=== PATIENT | male | born 1975 ===

== ENCOUNTER 2025-02-26 06:37 | Day surgery (SDC) | payer MEDICAID, SELFPAY ==
--- NOTE | 2025-02-25 14:56 | W.PM.DSUDISC ---
Date of service: 02/26/25 Discharge Plan Disposition Patient Disposition: Home Condition: Good Discharge Details Reason For Visit: Screening colonoscopy Attending Provider: Darwin Lin Primary Care Provider: Anyi Yu Home Meds and New Rx's Prescriptions: Continued buspirone 5 mg tablet 5 mg PO BID allopurinol 100 mg tablet 200 mg PO DAILY tamsulosin 0.4 mg capsule 0.4 mg PO DAILY pantoprazole 40 mg tablet,delayed release (DR/EC) 40 mg PO DAILY albuterol sulfate [Ventolin HFA] 90 mcg/actuation HFA aerosol inhaler 2 puff inhalation Q6H PRN fluticasone propionate 250 mcg/actuation blister with device 2 inh inhalation BID lisdexamfetamine [Vyvanse] 30 mg capsule 30 mg PO DAILY buprenorphine-naloxone [Suboxone] 2-0.5 mg film 1 film buccal DAILY Rx Instructions: place 1 strip/tab under (each) side of tongue buprenorphine-naloxone [Suboxone] 4-1 mg film 1 film buccal Q24H Rx Instructions: place 1 strip/tab under (each) side of tongue duloxetine 60 mg capsule,delayed release(DR/EC) 90 mg PO DAILY Discontinued bisacodyl 5 mg tablet,delayed release (DR/EC) 5 mg PO ONCE Qty: 4 0RF Rx Instructions: Per Colonoscopy bowel prep instructions polyethylene glycol 3350 17 gram/dose powder 238 g PO ONCE Qty: 238 0RF Rx Instructions: For Colonoscopy bowel prep, as directed by office Discharge Instructions Additional Instructions: Carlos, was good to meet you today, and I hope you feel well after the procedure. Things went very smoothly. I saw no signs of tumors, polyps, or any other worrisome diseases in your colon. I recommend a 10-year interval for your next screening colonoscopy 1. If tolerated, consume a soft, low fiber diet for 1-2 days. [address] Do not drive, drink alcohol, operate machinery, make critical decisions, or do activities that require coordination or balance for 24 hours. 3. Because air was put into your colon during the procedure, expelling air from your rectum (passing gas or farting) is normal. 4. You may not have a bowel movement for 1-3 days because of the colonoscopy prep. This is normal. 5. Go directly to the emergency room if you notice any of the following: Develop chills (warm to touch), or if you have a thermometer and your temperature is above 101 Difficulty breathing or difficultly swallowing Persistent vomiting Severe abdominal pain, other than gas cramps Severe chest pain Black, tarry stools Any bleeding ? exceeding one tablespoon 6. Call your physician if the site where your intravenous was started becomes red, swollen, painful, and warm to touch. 7. Your physician has reviewed your pre-procedure medications. Please continue to take those medications as previously ordered. You will be given specific information/education regarding any changes to your medications before leaving. Stand Alone Forms: Anesthesia Discharge Inst., [facility] ([facility]), Portal Information Activity:: Activity as Tolerated Diet:: As Tolerated Discharge Orders Discharge Orders: Discharge Order (Routine); Ordered 02/25/25 Ordered By: Darwin Lin DS: Diagnosis Discharge Diagnosis (1) Encounter for screening colonoscopy: Status: Acute Asessment and Plan: Negative screening colonoscopy; recommend 10-year interval for the next testing
--- NOTE | 2025-02-25 14:57 | W.COLOREPORT ---
Date of service: 02/26/25 Time of Service: 08:40 Colonoscopy Report Date of procedure: 02/26/25 Pre-op diagnosis general: Screening colonoscopy Post-op diagnosis procedure note: other (Negative screening colonoscopy) Procedure: Colonoscopy Surgeon: Darwin Lin Anesthesia Type: General:No Airway Estimated blood loss (mL): 0 Pathology: none sent Complications: None Disposition: same day Indications: Carlos is a 49-year-old man who needs a screening colonoscopy Prep: Miralax/Dulcolax Procedure Start Time: 08:14 Procedure End Time: 08:32 Retraction Time: 9 Findings: Negative screening colonoscopy Procedure Description: After the induction of anesthesia, and with the patient in left lateral decubitus position, I began by performing an external anorectal exam.? Perineum and skin were normal, as was the anal verge.? There was no evidence of external hemorrhoids.? Next, I performed a digital rectal exam.? I did not appreciate any abnormal findings.? Next, I advanced a colonoscope into the rectal vault.? I performed retroflexion.? This appeared normal.? Using insufflation, I then advanced the colonoscope beyond the rectal folds and into the sigmoid colon before advancing towards the cecum.? The scope was noted to be in the cecum by identification of the ileocecal valve and appendiceal orifice.? I then began withdrawing the colonoscope using repeated irrigation as necessary for full evaluation of the colonic mucosa. ?Once the scope was withdrawn to the level of the rectum, great care was taken to examine portions of the rectal folds.? I saw no signs of tumors, polyps, or any other pathology. Finally, the scope was withdrawn and the patient was brought to the same-day surgery recovery unit as the anesthetic wore off. ?The findings and instructions were shared with the patient prior to discharge. [place] Bowel Prep [place] Bowel Prep Right Colon: 2 Left Colon: 3 Transverse Colon: 3 Total Score: 8
[2025-02-26 07:03] VITALS: BP 121/90; PULSE 85; RESP 18; TEMP 36.2; O2SAT 95
[2025-02-26] MEDS: Lactated Ringers 1,000 ML 80 ML IV (07:21)
[2025-02-26 07:22] VITALS: BMI 33.2
--- NOTE | 2025-02-26 07:22 | W.ANESPRE ---
General Info Date of Service Date Performed: 02/26/25 Height: 5 ft 11 in Weight: 108.1 kg Body Mass Index (BMI): 33.2 Surgical Procedure: Operation Date: 02/26/25 08:20 Proposed Procedure Side Surgeon rosario Lin MD Meds Allergies and Home Medications Allergies Allergy/AdvReac Type Severity Reaction Status Date / Time No Known Allergies Allergy Verified 02/26/25 06:59 Home Medication ?Medication ?Instructions ?Recorded albuterol sulfate 90 mcg/actuation 2 puff inhalation Q6H PRN 02/04/25 aerosol inhaler (Ventolin HFA) allopurinol 100 mg tablet 200 mg PO DAILY 02/04/25 buprenorphine 2 mg-naloxone 0.5 mg 1 film buccal DAILY 02/04/25 sublingual film (Suboxone) buprenorphine 4 mg-naloxone 1 mg 1 film buccal Q24H 02/04/25 sublingual film (Suboxone) buspirone 5 mg tablet 5 mg PO BID 02/04/25 fluticasone propionate 250 2 inh inhalation BID 02/04/25 mcg/actuation blister powder for inhalation lisdexamfetamine 30 mg capsule 30 mg PO DAILY 02/04/25 (Vyvanse) pantoprazole 40 mg tablet,delayed 40 mg PO DAILY 02/04/25 release tamsulosin 0.4 mg capsule 0.4 mg PO DAILY 02/04/25 duloxetine 60 mg capsule,delayed 90 mg PO DAILY 02/11/25 release Current Visit Medications: Current Medications Generic Name Dose Route Start Last Admin Trade Name Freq PRN Reason Stop Dose Admin Ringer's Solution 1,000 mls @ 80 mls/hr 02/26/25 06:00 02/26/25 07:21 IV 02/26/25 23:59 80 mls/hr INFUSION ELIO Administration Sodium Chloride 0 ml 02/26/25 06:00 Normal Saline Flush 10 Ml Syr IV 02/26/25 23:59 PRN PRN Sodium Chloride 0 ml 02/26/25 06:00 Normal Saline 10 Ml Vial IJ 02/26/25 23:59 DIRECTED PRN Sterile Water 0 ml 02/26/25 06:00 Water,Injection,Sterile 10 Ml Vial IJ 02/26/25 23:59 DIRECTED PRN PFSH Active Problems Active Problems: Problem Status Onset Code Encounter for screening colonoscopy Acute Z12.11 GERD (gastroesophageal reflux disease) Chronic K21.9 Adult attention deficit hyperactivity disorder Acute F90.9 PTSD (post-traumatic stress disorder) Acute F43.10 Opioid dependence Acute F11.20 Anxiety Chronic F41.9 Gouty arthropathy Acute M10.9 Hyperlipidemia Acute E78.5 LPRD (laryngopharyngeal reflux disease) Acute K21.9 Chronic hoarseness Acute R49.0 Medical History Medical History Donor of kidney for transplant Incomplete emptying of bladder Blindness left eye category 3, normal vision right eye Pulse fast Disorder of urinary tract Mild intermittent asthma Essential hypertension Bilateral hearing loss Surgical History Surgical History S/P craniofacial reconstruction Tobacco Smoking/Tobacco Use Status: Former Tobacco Use Passive smoking exposure: No Alcohol Alcohol Intake: never Substance Use Substance use type: marijuana Details: edible and inhaled; last use was 02/26/25. Vital Signs and Lab Results Vital Signs Most Recent Vital Signs in EMR: Most Recent Vital Signs Temp Pulse Resp BP Pulse Ox 36.2 C L 85 18 121/90 95 02/26/25 07:03 02/26/25 07:03 02/26/25 07:03 02/26/25 07:03 02/26/25 07:03 Anesthesia Assessment and Plan Anesthesia History Personal History: No History of Anesthesia Complications Family History: No Family History of Anesthesia Complications Exercise Tolerance Exercise Tolerance: Metabolic Equivalents>4 Pertinent Negatives Pertinent Negatives: No Symptoms of GERD, No Major Pulmonary Symptoms or Complaints and No History of CVA/TIA Cardiac & Pulmonary Exam Cardiac Exam: Normal S1/S2 Heart Sounds Pulmonary Exam: Clear Bilateral Breath Sounds Implantable Cardiac Device Does patient have a Pacemaker or an ICD?: No Airway Exam Known Difficult Airway: No Mallampati Class: 2 Mouth Opening: Normal (> 3cm) Thyromental Distance: Greater than 3 cm Neck Range of Motion: Full ROM Neck Circumference: Normal Teeth Condition: Normal Dentition ASA Classification ASA Score: ASA 2 Emergency Case?: No NPO Status NPO Status: NPO Clears >2 hours, Solids >8 hours Anesthesia Plan Resuscitation Status: Full Code Anesthesia Technique: General Anesthesia Airway Planned: Natural Airway Monitors Used: Standard Monitors Preoperative Comments:: Left kidney donated, function been normal. First colonoscopy.
[2025-02-26 08:37] VITALS: BP 114/66; PULSE 94; RESP 16; TEMP 36; O2SAT 96
--- NOTE | 2025-02-26 08:58 | W.ANESPOSTOP ---
Postoperative Evaluation Date, Time and Location Date Performed: 02/26/25 Time Performed: 08:58 Patient Location: Day Surgery Unit Vital Signs Most Recent Imported Vital Signs: Most Recent Vital Signs Temp Pulse Resp BP Pulse Ox 36 C L 94 H 16 114/66 96 02/26/25 08:37 02/26/25 08:37 02/26/25 08:37 02/26/25 08:37 02/26/25 08:37 Pain Score Most Recent Pain Score: Most Recent Pain Score Pain Level 0 02/26/25 08:37 Assessment Mental Status: Awake (Alert & Oriented to Patient Baseline) Airway and Respiratory Function: Patent airway with normal (patient baseline) respiratory exam Cardiovascular Function: Hemodynamically Stable Hydration Status: Adequately Hydrated Nausea & Vomiting: No Nausea or Vomiting Pain: Pt. Denies Any Pain Peripheral Nerve Block: Patient did not receive a nerve block
[2025-02-26 09:00] VITALS: BP 124/73; PULSE 82; RESP 16; TEMP 36.1; O2SAT 96
== END 2025-02-26 09:05 | disposition home or self-care (01) ==
LOC: SUR 06:38
PROVIDERS: PCP Nurse Practitioner Family; Visit Provider Surgery
PROC: 0DJD8ZZ Inspection of Lower Intestinal Tract, Via Natural or Artificial Opening Endoscopic (ICD-10-PCS; CPT 45378; principal; 2025-02-26 08:15)
DX: Z12.11 Encounter for screening for malignant neoplasm of colon (principal); K21.9 Gastro-esophageal reflux disease without esophagitis
CPT/HCPCS: 45378; J2704